=== PATIENT | female | born 1955 | race Caucasian/White ===

== ENCOUNTER 2022-02-11 07:35 | Outpatient (CLI) | payer MEDICARE, SELFPAY ==
--- NOTE | ~2022-02-11 | DEXA_ITS ---
Bone Density Report Name: NURIS BOYLE Age: 66 Sex: Female Ethnicity: White Date of : 1955 Indication: postmenopausal; screening for osteoporosis; parental hip fracture; height loss; hysterectomy; Referring Provider: MAAME SAUCEDO Study: Bone densitometry was performed. Exam Date: February 11, 2022 Accession number: [id number] Bone Density: Region BMD T-score Z-score Classification AP Spine(L1-L4) 0.828 -2.0 -0.1 Osteopenia Femoral Neck (Left) 0.603 -2.2 -0.6 Osteopenia Total Hip (Left) 0.722 -1.8 -0.5 Osteopenia Femoral Neck (Right) 0.623 -2.0 -0.4 Osteopenia Total Hip (Right) 0.763 -1.5 -0.2 Osteopenia Total Hip Mean 0.743 -1.7 -0.4 Osteopenia World Health Organization criteria for BMD impression classify patients as: Normal (T-score at or above -1.0), Osteopenia (T-score between -1.0 and -2.5), or Osteoporosis (T-score at or below -2.5). 10-year Fracture Risk(1): Major Osteoporotic Fracture 20% Hip Fracture 2.7% Reported Risk Factors: [place] (), Neck BMD=0.603, BMI=24.7, parental fracture (1) FRAX(R) Version 3.08. Fracture probability calculated for an untreated patient. Fracture probability may be lower if the patient has received treatment. Clinical Information Provided by Patient: Parent has had a hip fracture Has the following medical conditions: Hysterectomy Patient maximum height was 68 Menopause Age: 54 Drinks caffeinated beverages Onset of menses at age 16 Number of children 3 Impression: The patient has low bone mass, based on the Left Femoral Neck T-score. The patient has an estimated ten-year risk of hip fracture of 2.7% and an estimated ten-year risk of major fracture of 20%, based on the WHO FRAX algorithm. The patient has risk factors, including: parental hip fracture. Discussion: BONE DENSITY IS LOW AT ONE OR MORE SKELETAL SITES. THE PATIENT'S BMD AND CLINICAL RISK FACTORS CONTRIBUTE TO THIS PATIENT'S INCREASED RISK OF FRACTURE. This patient's lowest T-score is low at one or more skeletal sites. It meets the World Health Organization's (WHO) criteria for ?low bone mass? (T-score between -1.0 and -2.5). The patient's 10-year risk of a major osteoporotic fracture as calculated by FRAX exceeds the threshold where pharmacological therapy is recommended by the National Osteoporosis Foundation (NOF). However, all treatment decisions require clinical judgment and consideration of individual patient factors, including patient preferences, comorbidities, previous drug use, risk factors not captured in the FRAX model (e.g., frailty, falls, vitamin D deficiency, increased bone turnover, interval significant decline in bone density) and possible under or overestimation of fracture risk by FRAX. The patient should follow a healthful lifestyle (good nutrition with
== END 2022-02-11 07:36 | disposition home or self-care (01) ==
LOC: ANHIMG 07:37
PROVIDERS: PCP Family Medicine; Visit Provider Nurse Practitioner Family
DX: Z78.0 Asymptomatic menopausal state (principal); M85.89 Other specified disorders of bone density and structure, multiple sites
CPT/HCPCS: 77080

== ENCOUNTER 2022-06-13 09:05 | Outpatient (CLI) | payer MEDICARE, SELFPAY ==
[2022-06-13 18:52] LABS: LDL Cholesterol Direct 112 mg/dL
[2022-06-13 18:53] LABS: Basophils Percent Auto 0.5 % (0.2-1.2); Eosinophils Absolute Auto 0.1 K/mm3 (0-0.3); Eosinophils Percent Auto 1.3 % (0-4.4); Hematocrit 39.1 % (37.0-47.0); Hemoglobin 12.3 g/dL (12.0-15.0); Lymphocytes Percent Auto 18.6 % (18.3-44.2); Mean Corpuscular HGB Conc 31.5 g/dl (32-36); Mean Corpuscular Hemoglobin 30.2 pg (26-34); Mean Corpuscular Volume 96.1 fl (80-100); Mean Platelet Volume 12.3 fl (7.4-10.4); Monocytes Absolute Auto 0.3 K/mm3 (0.1-0.6); Monocytes Percent Auto 8.2 % (2.6-8.5); Neutrophils Absolute Auto 2.7 K/mm3 (1.3-6.7); Neutrophils Percent Auto 71.4 % (45.5-73.1); Platelet Count Result 145 k/mm3 (150-375); Red Blood Count 4.07 M/mm3 (4.2-5.4); Red Cell Distribution Width 13.4 % (11.5-14.5); White Blood Count 3.8 K/mm3 (4.5-10.0)
[2022-06-13 19:08] LABS: Alanine Aminotransferase 27 U/L (6-35); Albumin Level 4.4 g/dL (3.5-5.1); Alkaline Phosphatase 62 U/L (38-126); Anion Gap 9 mmol/L (8-16); Aspartate Amino Transferase 41 U/L (14-36); Bilirubin,Total 0.4 mg/dL (0.2-1.3); Blood Urea Nitrogen 20 mg/dL (7-17); Calcium 9.4 mg/dL (8.4-10.2); Carbon Dioxide 30 mmol/L (22-30); Chloride 100 mmol/L (98-107); Cholesterol 252 mg/dL (0-200); Estimated Glomerular Filt Rate > 60; Glucose 93 mg/dL (65-110); HDL Direct 90 mg/dL; Sodium 139 mmol/L (137-145); Triglycerides 66 mg/dL (<150)
[2022-06-13 19:12] LABS: Potassium 4.6 mmol/L (3.4-5.0)
== END 2022-06-13 09:06 | disposition home or self-care (01) ==
LOC: ANHGOSHLAB 09:09
PROVIDERS: PCP Family Medicine; Visit Provider Nurse Practitioner Family
DX: E78.5 Hyperlipidemia, unspecified (principal); I10 Essential (primary) hypertension
CPT/HCPCS: 36415; 80053; 80061; 85025

== ENCOUNTER 2023-03-10 11:43 | Outpatient (CLI) | payer MEDICARE, SELFPAY ==
[2023-03-10 12:01] LABS: Basophils Percent Auto 0.4 % (0.2-1.2); Eosinophils Absolute Auto 0.1 K/mm3 (0-0.3); Eosinophils Percent Auto 1.9 % (0-4.4); Hematocrit 35.6 % (37.0-47.0); Hemoglobin 11.8 g/dL (12.0-15.0); Mean Corpuscular HGB Conc 33.1 g/dl (32-36); Mean Corpuscular Hemoglobin 30.3 pg (26-34); Mean Corpuscular Volume 91.5 fl (80-100); Mean Platelet Volume 10.4 fl (7.4-10.4); Monocytes Absolute Auto 0.3 K/mm3 (0.1-0.6); Monocytes Percent Auto 10.1 % (2.6-8.5); Neutrophils Absolute Auto 1.5 K/mm3 (1.3-6.7); Neutrophils Percent Auto 57.6 % (45.5-73.1); Platelet Count Result 128 k/mm3 (150-375); Red Blood Count 3.89 M/mm3 (4.2-5.4); White Blood Count 2.7 K/mm3 (4.5-10.0)
[2023-03-10 12:05] LABS: Blood Urea Nitrogen 17 mg/dL (8-26); Carbon Dioxide 25 mmol/L (22-30); Chloride 102 mmol/L (98-109); Estimated Glomerular Filt Rate > 60; Glucose 88 mg/dL (70-105); Ionized Calcium (POC) 1.25 mmol/L (1.11-1.31); Potassium 3.8 mmol/L (3.5-4.9); Sodium 140 mmol/L (138-146)
[2023-03-10 16:36] LABS: Alanine Aminotransferase 24 U/L (6-35); Albumin Level 4.2 g/dL (3.5-5.1); Alkaline Phosphatase 59 U/L (38-126); Anion Gap 8 mmol/L (8-16); Aspartate Amino Transferase 33 U/L (14-36); Bilirubin,Total 0.7 mg/dL (0.2-1.3); Blood Urea Nitrogen 18 mg/dL (7-17); Calcium 9.3 mg/dL (8.4-10.2); Carbon Dioxide 28 mmol/L (22-30); Chloride 102 mmol/L (98-107); Estimated Glomerular Filt Rate > 60; Glucose 85 mg/dL (65-110); Potassium 3.8 mmol/L (3.4-5.0); Sodium 138 mmol/L (137-145)
== END 2023-03-10 11:44 | disposition home or self-care (01) ==
PROVIDERS: PCP Family Medicine; Visit Provider Internal Medicine Hematology & Oncology
DX: D72.819 Decreased white blood cell count, unspecified (principal)
CPT/HCPCS: 36415; 80047; 80053; 85025

== ENCOUNTER 2024-04-24 14:06 | Outpatient (CLI) | payer MEDICARE, SELFPAY ==
[2024-04-24 18:58] LABS: Basophils Percent Auto 0.6 % (0.2-1.2); Eosinophils Absolute Auto 0.1 K/mm3 (0-0.3); Eosinophils Percent Auto 2.7 % (0-4.4); Hematocrit 39.1 % (37.0-47.0); Hemoglobin 12.4 g/dL (12.0-15.0); Immature Granulocyte Absolute 0.01 K/mm3 (0.00-0.031); Immature Granulocyte Percent A 0.3 % (0-0.5); Lymphocytes Absolute Auto 0.92 K/mm3 (0.9-3.2); Lymphocytes Percent Auto 27.1 % (18.3-44.2); Mean Corpuscular HGB Conc 31.7 g/dl (32-36); Mean Corpuscular Hemoglobin 29.6 pg (26-34); Mean Corpuscular Volume 93.3 fl (80-100); Mean Platelet Volume 11.9 fl (7.4-10.4); Monocytes Absolute Auto 0.3 K/mm3 (0.1-0.6); Monocytes Percent Auto 8.8 % (2.6-8.5); Neutrophils Absolute Auto 2.1 K/mm3 (1.3-6.7); Neutrophils Percent Auto 60.5 % (45.5-73.1); Platelet Count Result 146 k/mm3 (150-375); Red Blood Count 4.19 M/mm3 (4.2-5.4); Red Cell Distribution Width 13.3 % (11.5-14.5); White Blood Count 3.4 K/mm3 (4.5-10.0)
[2024-04-24 19:22] LABS: Vitamin D 25 Hydroxy 52.3 ng/mL
[2024-04-24 19:41] LABS: Alanine Aminotransferase 27 U/L (6-35); Albumin Level 4.4 g/dL (3.5-5.1); Alkaline Phosphatase 65 U/L (38-126); Anion Gap 4 mmol/L (4-12); Aspartate Amino Transferase 39 U/L (14-36); Bilirubin,Total 0.8 mg/dL (0.2-1.3); Blood Urea Nitrogen 18 mg/dL (7-17); Calcium 9.5 mg/dL (8.4-10.2); Carbon Dioxide 33 mmol/L (22-30); Chloride 100 mmol/L (98-107); Cholesterol 241 mg/dL (0-200); Estimated Glomerular Filt Rate > 60; Glucose 83 mg/dL (65-110); HDL Direct 91 mg/dL; Potassium 4.5 mmol/L (3.4-5.0); Sodium 137 mmol/L (137-145); Triglycerides 88 mg/dL (<150)
[2024-04-24 19:52] LABS: LDL Cholesterol Direct 99 mg/dL
== END 2024-04-24 14:07 | disposition home or self-care (01) ==
LOC: ANHGOSHLAB 14:07
PROVIDERS: PCP Family Medicine; Visit Provider Nurse Practitioner Family
DX: E78.5 Hyperlipidemia, unspecified (principal); I10 Essential (primary) hypertension; E53.8 Deficiency of other specified B group vitamins; Z00.00 Encounter for general adult medical examination without abnormal findings; E55.9 Vitamin D deficiency, unspecified
CPT/HCPCS: 36415; 80053; 80061; 82306; 82607; 84443; 85025

== ENCOUNTER 2024-07-04 06:08 | Day surgery (SDC) | payer MEDICARE, SELFPAY ==
[2024-05-16 11:45] VITALS: BMI 26.7
[2024-06-24 10:44] VITALS: BMI 26.4
[2024-07-04 06:50] VITALS: BMI 27.1
[2024-07-04 06:51] VITALS: BP 183/104; PULSE 76; RESP 16; TEMP 36.8; O2SAT 100
[2024-07-04] MEDS: LACTATED RINGERS 1,000 ML 150 ML IV CONT (07:01)
[2024-07-04 07:06] VITALS: BP 162/94; PULSE 71; RESP 16
--- NOTE | 2024-07-04 07:07 | SUR.PREOP ---
INITIAL BP HIGH AT 183/104. PULSE 76. RECHECKED IN 15 MIN. 162/94, PULSE 71.
--- NOTE | 2024-07-04 07:12 | P.PNAN_ITS ---
Anes - Initial Pre Proc Eval Procedure: Operation Date: 07/04/24 08:00 Proposed Procedures p Diagnostic Colonoscopy - Deven Johnson MD Date/Time: 07/04/24 07:12 Surgeon: Deven Johnson MD Pre Op Diagnosis: History of Colon Polyps Patient Data Age: 68 Gender: F Height: 1.73 m Weight: 81.1 kg Last Vital Signs Temp 36.8 C 07/04/24 06:51 Pulse 71 07/04/24 07:06 Resp 16 07/04/24 07:06 BP 162/94 H 07/04/24 07:06 Pulse Ox 100 07/04/24 06:51 O2 Del Method Room Air 07/04/24 06:51 Allergies Allergy/AdvReac Type Severity Reaction Status Date / Time Penicillins Allergy Unknown Unknown Verified 06/24/24 10:43 Home Medications ?Medication ?Instructions ?Recorded ?Confirmed ?Type calcium carbonate 600 mg PO DAILY 09/11/20 07/04/24 History cholecalciferol (vitamin D3) 50 50 mcg PO DAILY 09/11/20 07/04/24 History mcg (2,000 unit) capsule cyanocobalamin (vitamin B-12) 500 500 mcg PO DAILY 09/11/20 07/04/24 History mcg tablet losartan 50 mg tablet 50 mg PO DAILY #90 tabs 02/26/24 07/04/24 Rx multivit with minerals-iron 18 1 tablet PO DAILY 06/24/24 07/04/24 History mg-folic ac 400 mcg-vit K 25 mcg tablet (Adults Multivitamin) Patient hx anesthesia problems: none Family hx anesthesia problems: none Results Review: All pre-operative results and documents have been reviewed as part of the pre- operative evaluation. [facility] Past Medical History Medical History Former smoker 8 pack-year history. She quit smoking in her early 20s. Leukopenia B12 deficiency Hyperlipidemia Osteopenia of multiple sites Surgical History Surgical History History of colonoscopy with polypectomy (~07/02/18) Dr Gunn, repeat in 5 years Family History Family History Mother Hypertension Social History Social History Social History: Patient is . 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 Smoking packs per day: 1 Smoking cigarettes per day: 20.0 Years smoked: 9 Smoking pack-years: 9.00 Smoking status: Former smoker Tobacco type: cigarettes Second hand tobacco smoke exposure: No Smoking end date: 07/24/79 Additional smoking assessment comments: 9 pack-year smoker Alcohol intake: current Drinks per week: 8 Substance use: never Substance use type: does not use Lack of Transportation: No Lack of Food: Never True Current Housing: I Have Housing Concerned About Future Housing: No Difficulty Paying Gas/Electric Bills: No Difficulty Paying for Meds: No Currently Unemployed: No Education: Trade/Vocational Certificate Difficulty w/ Childcare or Family Care: No Living arrangements: with family Spiritual care concerns: No Anes - Eval Final PreProcedure Day of Procedure 07/04/24 07:12 Patient weight: overweight Heart: regular rate and rhythm Lungs: clear to auscultation Airway: Mallampati scale class II Neurological: alert and oriented Last oral intake: >/= 8 hours ASA classification: II Emergent: no Anesthetic plan: proceed Anesthesia type and monitoring: general GIVS and standard monitoring Results Review: All pre-operative results and documents have been reviewed as part of the pre- operative evaluation. Informed Consent: The patient's anesthetic plan and its attendant risks and benefits were discussed with the patient/family/POA. Questions were solicited and answers provided to the satisfaction of the patient/family/POA.
--- NOTE | 2024-07-04 07:20 | P.HP_ITS ---
History of Present Illness History of Present Illness Consent: Risks, benefits, and alternatives have been discussed and questions answered. Patient agrees to proceed with procedure. Chief complaint: History of Colon Polyps Narrative: Aleshia Mccarthy is a 68 year old female presents for screening colonoscopy. Patient has a history of colon polyp patient reports that her current weight appetite and bowel movements are normal. Patient denies abdominal pain. She has had no bleeding. Family history is noncontributory. Review of Systems Review of Systems: All systems reviewed & are unremarkable except as noted in HPI and below PMFSH Past Medical History Medical History Former smoker 8 pack-year history. She quit smoking in her early 20s. Leukopenia B12 deficiency Hyperlipidemia Osteopenia of multiple sites Surgical History Surgical History History of colonoscopy with polypectomy (~07/02/18) Dr Gunn, repeat in 5 years Family History Family History Mother Hypertension Social History Social History Social History: Patient is . 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 Smoking packs per day: 1 Smoking cigarettes per day: 20.0 Years smoked: 9 Smoking pack-years: 9.00 Smoking status: Former smoker Tobacco type: cigarettes Second hand tobacco smoke exposure: No Smoking end date: 07/24/79 Additional smoking assessment comments: 9 pack-year smoker Alcohol intake: current Drinks per week: 8 Substance use: never Substance use type: does not use Lack of Transportation: No Lack of Food: Never True Current Housing: I Have Housing Concerned About Future Housing: No Difficulty Paying Gas/Electric Bills: No Difficulty Paying for Meds: No Currently Unemployed: No Education: Trade/Vocational Certificate Difficulty w/ Childcare or Family Care: No Living arrangements: with family Spiritual care concerns: No Meds Home Medications and Allergies Home Medications ?Medication ?Instructions ?Recorded ?Confirmed ?Type calcium carbonate 600 mg PO DAILY 09/11/20 07/04/24 History cholecalciferol (vitamin D3) 50 50 mcg PO DAILY 09/11/20 07/04/24 History mcg (2,000 unit) capsule cyanocobalamin (vitamin B-12) 500 500 mcg PO DAILY 09/11/20 07/04/24 History mcg tablet losartan 50 mg tablet 50 mg PO DAILY #90 tabs 02/26/24 07/04/24 Rx multivit with minerals-iron 18 1 tablet PO DAILY 06/24/24 07/04/24 History mg-folic ac 400 mcg-vit K 25 mcg tablet (Adults Multivitamin) Allergies Allergy/AdvReac Type Severity Reaction Status Date / Time Penicillins Allergy Unknown Unknown Verified 06/24/24 10:43 Vital Signs Vital Signs - 24 hr 07/04/24 06:51 07/04/24 07:06 Temperature 98.2 F Pulse Rate 76 71 Respiratory Rate 16 16 Blood Pressure 183/104 H 162/94 H Pulse Oximetry 100 Oxygen Delivery Room Air Exam Narrative: Physical exam reveals patient to be alert. Vital Signs stable. HEENT exam is unremarkable. Patient is anicteric. Lungs are clear to auscultation and to percussion is without murmur or extra sounds. Abdomen bowel sounds are present soft nontender with no organomegaly. Digital external rectal exam normal. Assessment and Plan Assessment and plan (1) Personal history of colonic polyps: Code(s): Z86.010 - Personal history of colon polyps Status: Acute Assessment and Plan: Patient has a history of colon polyps on previous colonoscopy. Plan for surveillance colonoscopy now and consider this at 5 year intervals.
[2024-07-04 08:25] VITALS: BP 143/78; PULSE 77; RESP 16; O2SAT 99
--- NOTE | 2024-07-04 08:34 | WPDANESPN ---
Anes - Prog Note Post-Op Date/Time: 07/04/24 08:34 Cardiovascular status: normal Respiratory status: normal Airway patency: baseline Mental status: baseline Post-Op hydration status: normal Vital Signs: Last Vital Signs Temp 36.8 C 07/04/24 06:51 Pulse 77 07/04/24 08:25 Resp 16 07/04/24 08:25 BP 143/78 H 07/04/24 08:25 Pulse Ox 99 07/04/24 08:25 O2 Del Method Room Air 07/04/24 08:25 Pain Score (VAS): 0/10 I/O: Intake & Output 07/03/24 07/04/24 07/04/24 23:59 07:59 15:59 Intake Total 500 Balance 500 Patient Feedback: Patient satisfied with anesthetic care.
[2024-07-04 08:35] VITALS: BP 159/81; PULSE 67; RESP 18; O2SAT 99
[2024-07-04 08:45] VITALS: BP 152/87; PULSE 70; RESP 18; O2SAT 99
== END 2024-07-04 08:56 | disposition home or self-care (01) ==
PROVIDERS: PCP Family Medicine; Visit Provider Internal Medicine Gastroenterology
PROC: 0DJD8ZZ Inspection of Lower Intestinal Tract, Via Natural or Artificial Opening Endoscopic (ICD-10-PCS; CPT 45378; principal; 2024-07-04 08:00)
DX: Z86.0100 Personal history of colon polyps, unspecified (principal); K57.30 Diverticulosis of large intestine without perforation or abscess without bleeding
CPT/HCPCS: 45378

== ENCOUNTER 2024-10-25 08:49 | Outpatient (CLI) | payer MEDICARE, SELFPAY ==
--- OUTSIDE RECORDS SUMMARY | 2024-10-25 08:55 | XMS_ITS | Encounter Summary ---
Author Organization [facility] Address [address] [place] [address] Care Team Providers Care Banking Services Clerk Name Role Phone Unavailable Primary Care Provider Unavailabl e Encounter Details Date Type Department Care Team (Late st Contact Info) Description 09/10/2018 Lab Requisition [facility] [address] [place] [address] Unknown, Provider Social History Tobacco Use Types Packs/Day Years Used Date Smoking Tobacco: Former Comments:quit 1980 Alcohol Use Standard Drinks/Week Comments Yes 0 (1 standard drink = 0.6 oz pur e alcohol) occasional Sex and Gender Information Value Date Recorded Sex Assigned at Not on file Gender Identity Not on file Sexual Orientation Not on file documented as of this encounter Plan of Treatment Not on file documented as of this encounter Procedures Procedure Name Priority Date/Time Associated Diagnosis Comments CBC W AUTO DIFFERENTIAL STAT 09/10/2018 3:44 PM GEOPH[facility]ICAL LABORATORY DIRECTOR COMPREHENSIVE METABOLIC PANEL STAT 09/10/2018 3:44 PM GEOPHYSICAL LABORATORY DIRECTOR documented in this encounter Results * (ABNORMAL) CBC WITH DIFFERENTIAL (09/10/2018 3:44 PM GEOPHYSICAL LABORATORY DIRECTOR) WBC 3.9(L) 4.4 - 10.7 x10E9/L 09/10/2018 6:25 PM GEOPHYSICAL LABORATORY DIRECTOR [facility] WBC Corrected x10E9/L 09/10/2018 6:25 PM GEOPHYSICAL LABORATORY DIRECTOR [facility] RBC 4.21 3.80 - 5.20 x10E12/L 09/10/2018 6:[address] [facility] Hemoglobin 12.3 12.0 - 15.6 gm/dL 09/10/2018 6:[address] [facility] Hematocrit 38.7 35.9 - 45.5 % 09/10/2018 6:[address] [facility] MCV 91.9 80.7 - 98.3 fl 09/10/2018 6:[address] [facility] MCH 29.2 26.7 - 34.0 pg 09/10/2018 6:[address] [facility] MCHC 31.8 30.8 - 35.9 gm/dL 09/10/2018 6:[address] [facility] Platelet Count 140(L) 153 - 416 x10E9/L 09/10/2018 6:[address] [facility] RDW-CV 12.8 12.1 - 14.9 % 09/10/2018 6:[address] [facility] MPV 13.0(H) 9.4 - 12.9 fl 09/10/2018 6:[address] [facility] Neutrophils % 65.4 44.0 - 73.0 % 09/10/2018 6:[address] [facility] Lymphocytes % 24.0 20.0 - 43.0 % 09/10/2018 6:[address] [facility] Monocytes % 8.5 5.0 - 13.0 % 09/10/2018 6:[address] [facility] Eosinophils % 1.8 0.0 - 6.0 % 09/10/2018 6:[address] [facility] Basophils % 0.3 0.0 - 2.0 % 09/10/2018 6:[address] [facility] Immature Granulocytes 0.0 0 - 1 % 09/10/2018 6:[address] [facility] Neutrophil Absolute 2.54 2.01 - 7.14 x10E9/L 09/10/2018 6:[address] [facility] Lymphocytes Absolute 0.93(L) 1.07 - 3.94 x10E9/L 09/10/2018 6:[address] [facility] Monocytes Absolute 0.33 0.26 - 1.07 x10E9/L 09/10/2018 6:[address] [facility] Eosinophils Absolute 0.07 0 - 0.47 x10E9/L 09/10/2018 6:[address] [facility] Basophils Absolute 0.01 0 - 0.08 x10E9/L 09/10/2018 6:[address] [facility] Immature Granulocytes Absolute 0.00 0.00 - 0.06 x10E9/L 09/10/2018 6:[address] [facility] nRBC Auto 0 /100 WBC 09/10/2018 6:[address] [facility] Blood BLOOD SPECIMEN / Unknown Venipuncture / Unknown 09/10/2018 3:44 PM GEOPHYSICAL LABORATORY DIRECTOR 09/10/2018 6:03 PM [facility] Provider Unknown LAB - HEMATOLOGY ORD ERABLES [facility] [address] [place] [address] * COMPREHENSIVE METABOLIC PANEL (09/10/2018 3:44 PM [facility]) Glucose 87 74 - 106 mg/dL 09/10/2018 6:[address] [facility] Sodium 141 136 - 145 mmol/L 09/10/2018 6:[address] [facility] Potassium 3.8 3.5 - 5.1 mmol/L 09/10/2018 6:[address] [facility] Chloride 105 98 - 107 mmol/L 09/10/2018 6:[address] [facility] CO2 28 22 - 31 mmol/L 09/10/2018 6:[address] [facility] Calcium 9.3 8.5 - 10.1 mg/dL 09/10/2018 6:[address] [facility] Anion Gap 8 8 - 16 mmol/L 09/10/2018 6:[address] [facility] BUN 18 7 - 21 mg/dL 09/10/2018 6:[address] [facility] Creatinine 0.80 0.50 - 1.30 mg/dL 09/10/2018 6:[address] [facility] Alkaline Phosphatase 87 38 - 126 U/L 09/10/2018 6:[address] [facility] ALT 32 13 - 61 U/L 09/10/2018 6:[address] [facility] AST 23 5 - 40 U/L 09/10/2018 6:[address] [facility] Protein Total 7.3 6.4 - 8.2 gm/dL 09/10/2018 6:35 PM GEOPHYSICAL LABORATORY DIRECTOR [facility] Albumin 3.9 3.4 - 5.0 gm/dL 09/10/2018 6:35 PM GEOPHYSICAL LABORATORY DIRECTOR [facility] Bilirubin Total 0.3 0.2 - 1.0 mg/dL 09/10/2018 6:35 PM GEOPHYSICAL LABORATORY DIRECTOR [facility] eGFR by MDRD >60 >60 mL/min/1.7 3m2 09/10/2018 6:35 PM GEOPHYSICAL LABORATORY DIRECTOR [facility] eGFR by MDRD >60 >60 mL/min/1.7 3m2 09/10/2018 6:35 PM GEOPHYSICAL LABORATORY DIRECTOR [facility] Blood BLOOD SPECIMEN / Unknown Venipuncture / Unknown 09/10/2018 3:44 PM GEOPHYSICAL LABORATORY DIRECTOR 09/10/2018 6:03 PM GEOPHYSICAL LABORATORY DIRECTOR Provider Unknown LAB - CHEMISTRY VICKIE Phelps Organization Address City/State/[facility] Co de Phone Number [facility] [address] [place] [address] documented in this encounter Visit Diagnoses Not on filedocumented in this encounter
--- OUTSIDE RECORDS SUMMARY | 2024-10-25 08:55 | XMS_ITS | Clinical Summary ---
Author Organization [facility] Address [address] [place] [address] Care Team Providers Care Assisted Living Associate Name Role Phone Unavailable Primary Care Provider Unavailabl e Source Comments [facility],non-owned Affiliates and Associated Physician Practices is amultiple site organization consisting of ambulatory clinics and hospital sitesin [place], [place], [place] and [place]. This disclosure is being madepursuant to the Care Everywhere program and may not contain all information available regarding this patient. Last updated 18.[facility] Allergies Active Allergy Reactions Criticality Noted Date Comments Penicillins Rash,Fever Low 02/14/2011 Patient has received Cefazolin during surgery with no adverse reaction Medications * Be aware that medications may not be up to date on this document. Alwaysverify current medications with the patient. Medication Sig Dispensed Refills Start Date End Date Status docusate sodium (COLACE) 100 MG capsule Take 1 Cap by mouth 2 times daily as needed for Constipation. 7 Cap 0 03/03/2011 Active hydrocodone-acetaminop hen (NORCO) 5-325 MG tablet Take 1-2 Tabs by mouth every 4 hours as needed for Pain. 30 Tab 0 03/03/2011 Active ibuprofen (MOTRIN) 600 MG tablet Take 1 Tab by mouth every 6 hours as needed for Pain. 45 Tab 0 03/03/2011 Active ferrous sulfate 325 (65 FE) MG tablet Take 1 Tab by mouth daily with breakfast. 30 Tab 1 03/03/2011 Active nitrofurantoin monohyd macro crystals (MACROBID) 100 MG capsule Take 1 Cap by mouth once daily. 14 Cap 0 03/03/2011 Active Active Problems No known active problems Family History Medical History Relation Name Comments Breast Cancer after age 50 or unknown Mother Hypercholesterolemia Mother Relation Name Status Comments Mother Social History Tobacco Use Types Packs/Day Years Used Date Smoking Tobacco: Former Comments:quit 1980 Alcohol Use Standard Drinks/Week Comments Yes 0 (1 standard drink = 0.6 oz pur e alcohol) occasional Sex and Gender Information Value Date Recorded Sex Assigned at Not on file Gender Identity Not on file Sexual Orientation Not on file Last Filed Vital Signs Vital Sign Reading Time Taken Comments Blood Pressure 106/65 03/03/2011 8:00 AM CDT Pulse 93 03/03/2011 8:00 AM CDT Temperature 37.1 C (98.7 F) 03/03/2011 8:00 AM CDT Respiratory Rate 18 03/03/2011 8:00 AM CDT Oxygen Saturation 97% 03/03/2011 8:00 AM CDT Inhaled Oxygen Concentration - - Weight 88.9 kg (196 lb) 03/02/2011 6:20 AM CDT Height 172.7 cm (5' 8 ) 03/02/2011 6:20 AM CDT Body Mass Index 29.8 03/02/2011 6:20 AM CDT Plan of Treatment Health Maintenance Due Date Last Done Comments BONE DENSITY TESTING 1955 COLOGUARD (AGES 45-75) - COL ON CA SCREENING 1955 COLON MONITORING 1955 COLONOSCOPY - COLON CA SCREENING 1955 CT COLONOGRAPHY - COLON CA SCREENING 1955 Colorectal Cancer Screening 1955 FIT - COLON CA SCREENING 1955 FLEX SIG - COLON CA SCREENING 1955 LIPID TESTING 1955 MAMMOGRAM 1955 HEPATITIS C SCREENING 08/16/1973 DTAP/TDAP/TD VACCINES (1 - Tdap) 1974 PNEUMOCOCCAL VACCINE 50+ (1 of 1 - PCV) 2005 ZOSTER VACCINE (1 of 2) 2005 COVID-19 VACCINE ( - 2023-2 5 season) 2024 DEPRESSION SCREENING 07/24/2024 INFLUENZA VACCINE (Season Ended) 2025 Respiratory Syncytial Virus (RSV) Vaccine Pt: or over 60 yrs (1 - 1-dose 75+ series) 2030 HEPATITIS B VACCINE Aged Out No longe r eligible based on patient's age to complete this topic HIB VACCINE Aged Out No longer eligi ble based on patient's age to complete this topic HPV VACCINE Aged Out No longer eligi ble based on patient's age to complete this topic MENINGOCOCCAL (Group B) VACC INE SHARED DECISION-MAKING Aged Out No longer eligibl e based on patient's age to complete this topic MENINGOCOCCAL GROUPS A/C/Y/W VACCINE Aged Out No longer eligible b ased on patient's age to complete this topic Advance Directives * FULL RESUSCITATION (Latest Code Status on File) Date Activated Date Inactivated Comments 03/02/2011 3:13 PM 03/04/2011 12:31 AM * FULL RESUSCITATION Date Activated Date Inactivated Comments 03/02/2011 6:36 AM 03/02/2011 3:13 PM
--- OUTSIDE RECORDS SUMMARY | 2024-10-25 08:55 | XMS_ITS | Clinical Summary ---
Author Organization [facility] Address [address] [place] [address] Care Team Providers Care Wind Turbine Electrical Engineer Name Role Phone Evgeny Chavez MD Primary Care Provider [phone] Allergies Active Allergy Reactions Criticality Noted Date Comments Penicillins Hives,Rash,Fever High 02/14/2011 Medications cholecalciferol , vitamin D3, 1,000 unit Take by mouth. Acti ve cyanocobalamin 1,000 mcg Tablet Take 1,000 mcg by mouth daily. Active ascorbic acid (ANETTE-C ORAL) Take by mouth. A ctive calcium carbonate/vitam in D3 (CALCIUM 600 + D,3, ORAL) Take by mouth. Activ e lisinopriL (PRINIVIL) 10 mg tablet Take 10 mg by mouth daily. 2 Active mupirocin (BACTROBAN) 2 % Ointment APPLY TOPICALLY TO THE AFFECTED AREA THREE TIMES DAILY 2 Active Active Problems Problem Noted Date Diagnosed Date Thrombocytopenia 04/13/2020 Leukopenia 09/10/2018 Family History Medical History Relation Name Comments Diabetes Brother 1 Diabetes Brother 2 Cancer Father Other Father Breast Cancer Mother Cancer Mother Relation Name Status Comments Brother 1 Alive Brother 2 Alive Brother 3 Alive Father RENAL CELL Mother Alive Sister 1 Alive Sister 2 Alive Social History Tobacco Use Types Packs/Day Years Used Date Smoking Tobacco: Former Cigarettes 1 6 0 09/10/1974 - 09/10/1980 Smokeless Tobacco: Never Alcohol Use Standard Drinks/Week Comments Yes 0 (1 standard drink = 0.6 oz pur e alcohol) Comments No Sex and Gender Information Value Date Recorded Sex Assigned at Not on file Legal Sex Female 1:11 PM NURSING HOME SOCIAL WORKER Gender Identity Not on file Sexual Orientation Not on file Last Filed Vital Signs Vital Sign Reading Time Taken Comments Blood Pressure 134/74 03/10/2023 12:06 PM CDT Pulse 74 03/10/2023 12:06 PM CDT Temperature 36.5 C (97.7 F) 03/10/2023 12:06 PM CDT Respiratory Rate 10 03/10/2023 12:06 PM CDT Oxygen Saturation 96% 03/10/2023 12:06 PM CDT Inhaled Oxygen Concentration - - Weight 76.2 kg (168 lb) 03/10/2023 12:06 PM CDT Height 172.7 cm (5' 8 ) 12/10/2021 9:17 AM CDT Body Mass Index 25.54 12/10/2021 9:17 AM CDT Plan of Treatment Health Maintenance Due Date Last Done Comments DTAP/TDAP/TD VACCINES (1 - Tdap) 1974 COLORECTAL SCREENING 2000 Colorectal Cancer Screening 2000 FIT-DNA Q 3 years 2000 FIT/FOBT Q 1 year 2000 Flex Sig/CT Colonography Q 5 years 2000 PNEUMOCOCCAL VACCINE 50+ YEA RS (1 of 1 - PCV) 2005 ZOSTER VACCINE (1 of 2) 2005 OSTEOPOROSIS SCREENING 2020 BREAST CANCER SCREENING 11/23/2021 11/23/2020, 06/07 INFLUENZA VACCINE (#1) 2024 RSV VACCINE (60+ or ) (1 - 1-dose 75+ series) [address] [facility] [id number] Care Teams Wind Turbine Electrical Engineer Relationship Specialty Start Date End Date Evgeny Chavez MD [address] [place] [address] PCP - General Family Practice 08/28/18
[2024-10-25 14:37] LABS: Alanine Aminotransferase 23 U/L (6-35); Albumin Level 4.3 g/dL (3.5-5.1); Alkaline Phosphatase 71 U/L (38-126); Anion Gap 6 mmol/L (4-12); Aspartate Amino Transferase 50 U/L (14-36); Bilirubin,Total 0.6 mg/dL (0.2-1.3); Blood Urea Nitrogen 22 mg/dL (7-17); Calcium 9.5 mg/dL (8.4-10.2); Carbon Dioxide 31 mmol/L (22-30); Chloride 102 mmol/L (98-107); Cholesterol 222 mg/dL (0-200); Estimated Glomerular Filt Rate > 60; Glucose 88 mg/dL (65-110); HDL Direct 88 mg/dL; Potassium 4.9 mmol/L (3.4-5.0); Sodium 139 mmol/L (137-145); Triglycerides 60 mg/dL (<150)
[2024-10-25 14:48] LABS: LDL Cholesterol Direct 103 mg/dL
== END 2024-10-25 08:50 | disposition home or self-care (01) ==
LOC: ANHGOSHLAB 08:50
PROVIDERS: PCP Family Medicine; Visit Provider Nurse Practitioner Family
DX: E53.8 Deficiency of other specified B group vitamins (principal); I10 Essential (primary) hypertension; E78.5 Hyperlipidemia, unspecified
CPT/HCPCS: 36415; 80053; 80061; 82607

== ENCOUNTER 2024-10-25 09:10 | Outpatient (CLI) | payer MEDICARE, SELFPAY ==
--- NOTE | ~2024-10-25 | XR_ITS ---
Right foot Technique: AP and lateral views were obtained. Clinical History: Pain Findings: No acute fracture or dislocation is seen. Osseous alignment is anatomic. Joint spaces are p reserved without erosive or degenerative change. Soft tissues are unremarkable. Impression: Unremarkable right foot radiographs. Reviewed, dictated and finalized at [facility]. Impression: Unremarkable right foot radiographs.
== END 2024-10-25 09:11 | disposition home or self-care (01) ==
PROVIDERS: PCP Nurse Practitioner Family; Visit Provider Nurse Practitioner Family
DX: M79.671 Pain in right foot (principal)
CPT/HCPCS: 73620

== ENCOUNTER 2024-11-06 08:45 | Outpatient (CLI) | payer MEDICARE, SELFPAY ==
--- NOTE | ~2024-11-06 | DEXA_ITS ---
Bone Density Report Name: NURIS BOYLE Age: 69 Sex: Female Ethnicity: White Date of : 1955 Indication: osteopenia; parental hip fracture; height loss; hysterectomy; Referring Provider: MAAME SAUCEDO Study: Bone densitometry was performed. Exam Date: November 06, 2024 Accession number: [id number] Bone Density: Region BMD T-score Z-score Classification AP Spine(L1-L4) 0.798 -2.3 -0.2 Osteopenia Femoral Neck (Left) 0.624 -2.0 -0.3 Osteopenia Total Hip (Left) 0.747 -1.6 -0.1 Osteopenia Femoral Neck (Right) 0.628 -2.0 -0.2 Osteopenia Total Hip (Right) 0.739 -1.7 -0.2 Osteopenia Total Hip Mean 0.743 -1.7 -0.2 Osteopenia World Health Organization criteria for BMD impression classify patients as: Normal (T-score at or above -1.0), Osteopenia (T-score between -1.0 and -2.5), or Osteoporosis (T-score at or below -2.5). 10-year Fracture Risk(1): Major Osteoporotic Fracture 18% Hip Fracture 3.9% Reported Risk Factors: [place] (), Neck BMD=0.624, BMI=24.7, parental fracture (1) FRAX(R) Version 3.08. Fracture probability calculated for an untreated patient. Fracture probability may be lower if the patient has received treatment. Previous Exams: Region Exam Age BMD T-score BMD Change BMD Change Date g/cm2 vs Baseline vs Previous AP Spine (L1-L4) 11/06/2024 69 0.798 -2.3 -0.030 (-3.6%) -0.030 (-3.6%) 02/11/2022 66 0.828 -2.0 Total Hip(Left) 11/06/2024 69 0.747 -1.6 0.025 (3.5%) 0.025 (3.5%) 02/11/2022 66 0.722 -1.8 Total Hip(Right) 11/06/2024 69 0.739 -1.7 -0.024 (-3.2%) -0.024 (-3.2%) 02/11/2022 66 0.763 -1.5 *Denotes significance at 95% confidence level, LSC for AP Spine = 0.022 g/cm2, LSC for Total Hip = 0.027 g/cm2 Clinical Information Provided by Patient: Parent has had a hip fracture Has used the following medications: Vitamin D, Calcium Has the following medical conditions: Hysterectomy Patient maximum height was 69 Menopause Age: 54 Does not regularly consume dairy products Drinks caffeinated beverages Onset of menses at age 15 Number of children 3 Impression: The patient has low bone mass, based on the Total Spine T-score. The patient has an estimated ten-year risk of hip fracture of 3.9% and an estimated ten-year risk of major fracture of 18%, based on the WHO FRAX algorithm. The patient has risk factors, including: parental hip fracture. The BMD for the AP Spine (L1-L4) decreased, changing by -3.6% since the last DXA exam. Discussion: BONE DENSITY IS LOW AT ONE OR MORE SKELETAL SITES. THE PATIENT'S BMD AND CLINICAL RISK FACTORS CONTRIBUTE TO THIS PATIENT'S INCREASED RISK OF FRACTURE. This patient's lowest T-score is low at one or more skeletal sites. It meets the World Health Organization's (WHO) criteria for ?low bone mass? (T-score between -1.0 and -2.5). The patient's 10-year risk of hip fracture as calculated by FRAX exceeds the threshold where pharmacological therapy is recommended by the National Osteoporosis Foundation (NOF). However, all treatment decisions require clinical judgment and consideration of individual patient factors, including patient preferences, comorbidities, previous drug use, risk factors not captured in the FRAX model (e.g., frailty, falls, vitamin D deficiency, increased bone turnover, interval significant decline in bone density) and possible under or overestimation of fracture risk by FRAX. The patient should follow a healthful lifestyle (good nutrition with adequate calcium and vitamin D, and appropriate weight-bearing exercise). Follow-Up: Consider a repeat BMD and Vertebral Fracture Assessment (VFA) exam in 2 years or sooner if medically necessary, to reassess this patient's status. Reported by: DONG on 11/06/2024 9:22:00 AM. Reviewed, dictated and finalized at location A[facility]andi [facility]AT
--- OUTSIDE RECORDS SUMMARY | 2024-11-06 09:07 | XMS_ITS | Encounter Summary ---
Author Organization [facility] Address [address] [place] [address] Care Team Providers Care Setter Out Name Role Phone Unavailable Primary Care Provider Unavailabl e Encounter Details Date Type Department Care Team (Late st Contact Info) Description 09/10/2018 Lab Requisition [facility] [address] [place] [address] Unknown, Provider Social History Tobacco Use Types Packs/Day Years Used Date Smoking Tobacco: Former Comments:quit 1981 Alcohol Use Standard Drinks/Week Comments Yes 0 (1 standard drink = 0.6 oz pur e alcohol) occasional Comments No Sex and Gender Information Value Date Recorded Sex Assigned at Not on file Legal Sex Female 11:43 AM 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 Gender Identity Not on file Sexual Orientation Not on file documented as of this encounter Plan of Treatment Not on file documented as of this encounter Procedures Procedure Name Priority Date/Time Associated Diagnosis Comments CBC W AUTO DIFFERENTIAL STAT 09/10/2018 3:44 PM ROVING SIZER COMPREHENSIVE METABOLIC PANEL STAT 09/10/2018 3:44 PM ROVING SIZER documented in this encounter Results * (ABNORMAL) CBC WITH DIFFERENTIAL (09/10/2018 3:44 PM ROVING SIZER) WBC 3.9(L) 4.4 - 10.7 x10E9/L 09/10/2018 6:25 PM ROVING SIZER [facility] WBC Corrected x10E9/L 09/10/2018 6:25 PM ROVING SIZER [facility] RBC 4.21 3.80 - 5.20 x10E12/L 09/10/2018 6:25 PM [facility] Hemoglobin 12.3 12.0 - 15.6 gm/dL 09/10/2018 6:25 PM [facility] Hematocrit 38.7 35.9 - 45.5 % 09/10/2018 6:25 PM [facility] MCV 91.9 80.7 - 98.3 fl 09/10/2018 6:25 PM [facility] MCH 29.2 26.7 - 34.0 pg 09/10/2018 6:25 PM [facility] MCHC 31.8 30.8 - 35.9 gm/dL 09/10/2018 6:25 PM [facility] Platelet Count 140(L) 153 - 416 x10E9/L 09/10/2018 6:25 PM [facility] RDW-CV 12.8 12.1 - 14.9 % 09/10/2018 6:25 PM [facility] MPV 13.0(H) 9.4 - 12.9 fl 09/10/2018 6:25 PM [facility] Neutrophils % 65.4 44.0 - 73.0 % 09/10/2018 6:25 PM [facility] Lymphocytes % 24.0 20.0 - 43.0 % 09/10/2018 6:25 PM [facility] Monocytes % 8.5 5.0 - 13.0 % 09/10/2018 6:25 PM [facility] Eosinophils % 1.8 0.0 - 6.0 % 09/10/2018 6:25 PM [facility] Basophils % 0.3 0.0 - 2.0 % 09/10/2018 6:25 PM [facility] Immature Granulocytes 0.0 0 - 1 % 09/10/2018 6:25 PM [facility] Neutrophil Absolute 2.54 2.01 - 7.14 x10E9/L 09/10/2018 6:25 PM [facility] Lymphocytes Absolute 0.93(L) 1.07 - 3.94 x10E9/L 09/10/2018 6:25 PM [facility] Monocytes Absolute 0.33 0.26 - 1.07 x10E9/L 09/10/2018 6:25 PM [facility] Eosinophils Absolute 0.07 0 - 0.47 x10E9/L 09/10/2018 6:25 PM [facility] Basophils Absolute 0.01 0 - 0.08 x10E9/L 09/10/2018 6:25 PM [facility] Immature Granulocytes Absolute 0.00 0.00 - 0.06 x10E9/L 09/10/2018 6:25 PM [facility] nRBC Auto 0 /100 WBC 09/10/2018 6:25 PM [facility] Blood BLOOD SPECIMEN / Unknown Venipuncture / Unknown 09/10/2018 3:44 PM ROVING SIZER 09/10/2018 6:03 PM ROVING SIZER us Provider Unknown LAB - HEMATOLOGY ORDERABLES Fin al Result Performing Organization Address City/State/[facility] Co de Phone Number [facility] [address] [place] [address] * COMPREHENSIVE METABOLIC PANEL (09/10/2018 3:44 PM ROVING SIZER) Glucose 87 74 - 106 mg/dL 09/10/2018 6:35 PM [facility] Sodium 141 136 - 145 mmol/L 09/10/2018 6:35 PM [facility] Potassium 3.8 3.5 - 5.1 mmol/L 09/10/2018 6:35 PM [facility] Chloride 105 98 - 107 mmol/L 09/10/2018 6:35 PM [facility] CO2 28 22 - 31 mmol/L 09/10/2018 6:35 PM [facility] Calcium 9.3 8.5 - 10.1 mg/dL 09/10/2018 6:35 PM [facility] Anion Gap 8 8 - 16 mmol/L 09/10/2018 6:35 PM [facility] BUN 18 7 - 21 mg/dL 09/10/2018 6:35 PM [facility] Creatinine 0.80 0.50 - 1.30 mg/dL 09/10/2018 6:35 PM [facility] Alkaline Phosphatase 87 38 - 126 U/L 09/10/2018 6:35 PM [facility] ALT 32 13 - 61 U/L 09/10/2018 6:35 PM [facility] AST 23 5 - 40 U/L 09/10/2018 6:35 PM [facility] Protein Total 7.3 6.4 - 8.2 gm/dL 09/10/2018 6:35 PM ROVING SIZER [facility] Albumin 3.9 3.4 - 5.0 gm/dL 09/10/2018 6:35 PM ROVING SIZER [facility] Bilirubin Total 0.3 0.2 - 1.0 mg/dL 09/10/2018 6:35 PM ROVING SIZER [facility] eGFR by MDRD >60 >60 mL/min/1.7 3m2 09/10/2018 6:35 PM ROVING SIZER [facility] eGFR by MDRD >60 >60 mL/min/1.7 3m2 09/10/2018 6:35 PM ROVING SIZER [facility] Blood BLOOD SPECIMEN / Unknown Venipuncture / Unknown 09/10/2018 3:44 PM ROVING SIZER 09/10/2018 6:03 PM ROVING SIZER us Provider Unknown LAB - CHEMISTRY ORDERABLES Carrie l Result Performing Organization Address City/State/[facility] Co de Phone Number [facility] [address] [place] [address] documented in this encounter Visit Diagnoses Not on filedocumented in this encounter
--- OUTSIDE RECORDS SUMMARY | 2024-11-06 09:07 | XMS_ITS | Clinical Summary ---
Author Organization [facility] [employer] Address [address] [place] [address] Care Team Providers Care Commercial Finance Analyst Name Role Phone Unavailable Primary Care Provider Unavailabl e Source Comments [facility] [employer],non-owned Affiliates and Associated Physician Practices is amultiple site organization consisting of ambulatory clinics and hospital sitesin [place], [place], [place] and [place]. This disclosure is being madepursuant to the Care Everywhere program and may not contain all information available regarding this patient. Last updated 18.[facility] [employer] Allergies Active Allergy Reactions Criticality Noted Date Comments Penicillins Rash,Fever Low 02/14/2011 Patient has received Cefazolin during surgery with no adverse reaction Medications * Be aware that medications may not be up to date on this document. Alwaysverify current medications with the patient. docusate sodium (COLACE) 100 MG capsule Take 1 Cap by mouth 2 times daily as needed for Constipatio n. 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
--- OUTSIDE RECORDS SUMMARY | 2024-11-06 09:07 | XMS_ITS | Clinical Summary ---
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
== END 2024-11-06 08:46 | disposition home or self-care (01) ==
LOC: ANHIMG 08:46
PROVIDERS: PCP Nurse Practitioner Family; Visit Provider Nurse Practitioner Family
DX: Z78.0 Asymptomatic menopausal state (principal); M85.88 Other specified disorders of bone density and structure, other site; M85.852 Other specified disorders of bone density and structure, left thigh; M85.851 Other specified disorders of bone density and structure, right thigh
CPT/HCPCS: 77080

== ENCOUNTER 2025-03-04 15:59 | Outpatient (CLI) | payer MEDICARE, SELFPAY ==
--- NOTE | ~2025-03-04 | XR_ITS ---
[id number] 03/04/2025 16:14 Indication: Left knee pain Procedure: 2 views left knee Comparison: No prior studies for comparison. Findings: No fracture, subluxation or dislocation. There is mild osteoarthritis. No joint effusion. N o foreign bodies. Impression: 1: Mild tricompartment osteoarthritis. Reviewed, dictated and finalized at location A. Impression: 1: Mild tricompartment osteoarthritis.
--- OUTSIDE RECORDS SUMMARY | 2025-03-04 16:04 | XMS_ITS | Encounter Summary ---
Author Organization [facility] Address [address] [place] [address] Care Team Providers Care Stave Inspector Name Role Phone Unavailable Primary Care Provider Unavailabl e Encounter Details Date Type Department Care Team (Late st Contact Info) Description 09/10/2018 Lab Requisition [facility] [address] [place] [address] Unknown, Provider Social History Tobacco Use Types Packs/Day Years Used Date Smoking Tobacco: Former Comments:quit 1981 Alcohol Use Standard Drinks/Week Comments Yes 0 (1 standard drink = 0.6 oz pur e alcohol) occasional Comments No Sex and Gender Information Value Date Recorded Sex Assigned at Not on file Legal Sex Female 11:43 AM MEDICATION 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 Gender Identity Not on file Sexual Orientation Not on file documented as of this encounter Plan of Treatment Not on file documented as of this encounter Procedures Procedure Name Priority Date/Time Associated Diagnosis Comments CBC W AUTO DIFFERENTIAL STAT 09/10/2018 3:44 PM MEDICATION TECHNICIAN COMPREHENSIVE METABOLIC PANEL STAT 09/10/2018 3:44 PM MEDICATION TECHNICIAN documented in this encounter Results * (ABNORMAL) CBC WITH DIFFERENTIAL (09/10/2018 3:44 PM MEDICATION TECHNICIAN) WBC 3.9(L) 4.4 - 10.7 x10E9/L 09/10/2018 6:25 PM MEDICATION TECHNICIAN [facility] WBC Corrected x10E9/L 09/10/2018 6:25 PM MEDICATION TECHNICIAN [facility] RBC 4.21 3.80 - 5.20 x10E12/L 09/10/2018 6:25 PM [facility] Hemoglobin 12.3 12.0 - 15.6 gm/dL 09/10/2018 6:25 PM [facility] Hematocrit 38.7 35.9 - 45.5 % 09/10/2018 6:25 PM [facility] MCV 91.9 80.7 - 98.3 fl 09/10/2018 6:25 PM [facility] MCH 29.2 26.7 - 34.0 pg 09/10/2018 6:25 PM [facility] MCHC 31.8 30.8 - 35.9 gm/dL 09/10/2018 6:25 PM [facility] Platelet Count 140(L) 153 - 416 x10E9/L 09/10/2018 6:25 PM [facility] RDW-CV 12.8 12.1 - 14.9 % 09/10/2018 6:25 PM [facility] MPV 13.0(H) 9.4 - 12.9 fl 09/10/2018 6:25 PM [facility] Neutrophils % 65.4 44.0 - 73.0 % 09/10/2018 6:25 PM [facility] Lymphocytes % 24.0 20.0 - 43.0 % 09/10/2018 6:25 PM [facility] Monocytes % 8.5 5.0 - 13.0 % 09/10/2018 6:25 PM [facility] Eosinophils % 1.8 0.0 - 6.0 % 09/10/2018 6:25 PM [facility] Basophils % 0.3 0.0 - 2.0 % 09/10/2018 6:25 PM [facility] Immature Granulocytes 0.0 0 - 1 % 09/10/2018 6:25 PM [facility] Neutrophil Absolute 2.54 2.01 - 7.14 x10E9/L 09/10/2018 6:25 PM [facility] Lymphocytes Absolute 0.93(L) 1.07 - 3.94 x10E9/L 09/10/2018 6:25 PM [facility] Monocytes Absolute 0.33 0.26 - 1.07 x10E9/L 09/10/2018 6:25 PM [facility] Eosinophils Absolute 0.07 0 - 0.47 x10E9/L 09/10/2018 6:25 PM [facility] Basophils Absolute 0.01 0 - 0.08 x10E9/L 09/10/2018 6:25 PM [facility] Immature Granulocytes Absolute 0.00 0.00 - 0.06 x10E9/L 09/10/2018 6:25 PM [facility] nRBC Auto 0 /100 WBC 09/10/2018 6:25 PM [facility] Blood BLOOD SPECIMEN / Unknown Venipuncture / Unknown 09/10/2018 3:44 PM MEDICATION TECHNICIAN 09/10/2018 6:03 PM MEDICATION TECHNICIAN us Provider Unknown LAB - HEMATOLOGY ORDERABLES Fin al Result Performing Organization Address City/State/[facility] Co de Phone Number [facility] [address] [place] [address] * COMPREHENSIVE METABOLIC PANEL (09/10/2018 3:44 PM [facility]) Glucose 87 74 - 106 mg/dL 09/10/2018 6:35 PM [facility] Sodium 141 136 - 145 mmol/L 09/10/2018 6:35 PM [facility] Potassium 3.8 3.5 - 5.1 mmol/L 09/10/2018 6:35 PM [facility] Chloride 105 98 - 107 mmol/L 09/10/2018 6:35 PM [facility] CO2 28 22 - 31 mmol/L 09/10/2018 6:35 PM [facility] Calcium 9.3 8.5 - 10.1 mg/dL 09/10/2018 6:35 PM [facility] Anion Gap 8 8 - 16 mmol/L 09/10/2018 6:35 PM [facility] BUN 18 7 - 21 mg/dL 09/10/2018 6:35 PM [facility] Creatinine 0.80 0.50 - 1.30 mg/dL 09/10/2018 6:35 PM [facility] Alkaline Phosphatase 87 38 - 126 U/L 09/10/2018 6:35 PM [facility] ALT 32 13 - 61 U/L 09/10/2018 6:35 PM [facility] AST 23 5 - 40 U/L 09/10/2018 6:35 PM [facility] Protein Total 7.3 6.4 - 8.2 gm/dL 09/10/2018 6:35 PM MEDICATION TECHNICIAN [facility] Albumin 3.9 3.4 - 5.0 gm/dL 09/10/2018 6:35 PM MEDICATION TECHNICIAN [facility] Bilirubin Total 0.3 0.2 - 1.0 mg/dL 09/10/2018 6:35 PM MEDICATION TECHNICIAN [facility] eGFR by MDRD >60 >60 mL/min/1.7 3m2 09/10/2018 6:35 PM MEDICATION TECHNICIAN [facility] eGFR by MDRD >60 >60 mL/min/1.7 3m2 09/10/2018 6:35 PM MEDICATION TECHNICIAN [facility] Blood BLOOD SPECIMEN / Unknown Venipuncture / Unknown 09/10/2018 3:44 PM MEDICATION TECHNICIAN 09/10/2018 6:03 PM MEDICATION TECHNICIAN us Provider Unknown LAB - CHEMISTRY ORDERABLES Carrie l Result Performing Organization Address City/State/[facility] Co de Phone Number [facility] [address] [place] [address] documented in this encounter Visit Diagnoses Not on filedocumented in this encounter
--- OUTSIDE RECORDS SUMMARY | 2025-03-04 16:04 | XMS_ITS | Clinical Summary ---
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
--- OUTSIDE RECORDS SUMMARY | 2025-03-04 16:04 | XMS_ITS | Clinical Summary ---
Author Organization [facility] [employer] Address [address] [place] [address] Care Team Providers Care Edge Bander Operator Name Role Phone Unavailable Primary Care Provider Unavailabl e Source Comments [facility] [employer],non-owned Affiliates and Associated Physician Practices is amultiple site organization consisting of ambulatory clinics and hospital sitesin [place], [place], [place] and [place]. This disclosure is being madepursuant to the Care Everywhere program and may not contain all information available regarding this patient. 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
== END 2025-03-04 16:00 | disposition home or self-care (01) ==
PROVIDERS: PCP Family Medicine; Visit Provider Nurse Practitioner Family
DX: M17.12 Unilateral primary osteoarthritis, left knee (principal)
CPT/HCPCS: 73560

== ENCOUNTER 2025-06-06 09:53 | Outpatient (CLI) | payer MEDICARE, SELFPAY ==
[2025-06-06 11:12] LABS: Hematocrit 36.5 % (37.0-47.0); Hemoglobin 11.6 g/dL (12.0-15.0); Immature Granulocyte Percent A 0.3 % (0-0.5); Immature Platelet Fraction Pct 6.4 % (0.9-11.2); Lymphocytes Absolute Auto 0.92 K/mm3 (0.9-3.2); Mean Corpuscular HGB Conc 31.8 g/dl (32-36); Mean Corpuscular Hemoglobin 29.7 pg (26-34); Mean Corpuscular Volume 93.6 fl (80-100); Nucleated Red Blood Cells Absolute Auto 0.000 K/mm3 (0.0-0.012); Nucleated Red Blood Cells Perc 0.0 % (0.0-0.2); Platelet Count Result 131 k/mm3 (150-375); Red Blood Count 3.90 M/mm3 (4.2-5.4); White Blood Count 3.4 K/mm3 (4.5-10.0)
== END 2025-06-06 09:54 | disposition home or self-care (01) ==
LOC: ANHGOSHLAB 09:54
PROVIDERS: PCP Family Medicine; Visit Provider Nurse Practitioner Family
DX: I10 Essential (primary) hypertension (principal)
CPT/HCPCS: 36415; 85025; 85055